=== PATIENT | male | born 1960 | race Caucasian/White ===

== ENCOUNTER 2024-02-13 18:44 | Emergency (ER) | payer OTHER ==
[~2024-02-13] VITALS: Ht 167.6 cm; Wt 72.6 kg
[2024-02-13 19:28] VITALS: BP 160/76; PULSE 74; RESP 18; TEMP 97.2; O2SAT 98
[2024-02-13 21:04] VITALS: BP 156/74; PULSE 76; RESP 18; TEMP 97.7; O2SAT 98
== END 2024-02-13 22:14 | disposition left against medical advice (07) ==
LOC: MED 18:44
DX: L03.114 Cellulitis of left upper limb (principal); L03.115 Cellulitis of right lower limb; Z53.21 Procedure and treatment not carried out due to patient leaving prior to being seen by health care provider
CPT/HCPCS: 73120